=== PATIENT | female | born 1985 | race Two or more races ===

== ENCOUNTER 2018-04-01 18:42 | Emergency (ER) | payer MEDICAID ==
[2018-04-01 20:49] LABS: microscopic required? YES; urine erythrocyte 2+ (NEGATIVE)
[2018-04-01 21:23] VITALS: BP 139/55
== END 2018-04-01 21:23 | disposition home or self-care (01) ==
LOC: ED 18:42
PROVIDERS: Emergency Medicine
DX: N12 Tubulo-interstitial nephritis, not specified as acute or chronic (principal); Z98.890 Other specified postprocedural states
CPT/HCPCS: J0696; J1885; J2001